=== PATIENT | male | born 1985 | race Two or more races ===

== ENCOUNTER 2023-12-24 06:42 | Emergency (ER) | payer OTHER ==
[~2023-12-24] VITALS: Ht 165.1 cm; Wt 91.6 kg
[2023-12-24] MEDS: ONDANSETRON ODT 4 MG TAB PO ONE (07:34)
[2023-12-24] MEDS: SODIUM CHLORIDE 0.9% 1,000 ML IV ONE (07:35)
[2023-12-24 07:37] VITALS: PULSE 77; RESP 16; O2SAT 97
[2023-12-24 07:43] LABS: Basophils # (auto) 0.1 10 ^3/uL (0-0.2); Basophils % (auto) 0.5 % (0.0-2.0); Eosinophils # (auto) 0.2 10 ^3/uL (0-0.8); Eosinophils % (auto) 1.6 % (0.0-7.0); Hematocrit 42.5 % (41.0-53.0); Hemoglobin 14.5 g/dL (13.5-17.5); Lymphocytes # (auto) 3.2 10 ^3/uL (0.4-5.4); Lymphocytes % (auto) 27.7 % (10.0-50.0); Mean Corpuscular Hemoglobin 30.4 pg (28.0-32.0); Mean Corpuscular Hgb Conc. 34.1 g/dL (32.0-36.0); Mean Corpuscular Volume 89.4 fL (80.0-100.0); Monocytes # (auto) 0.8 10 ^3/uL (0-1.3); Monocytes % (auto) 7.3 % (0.0-12.0); Neutrophils # (auto) 7.3 10 ^3/uL (1.6-8.6); Neutrophils % (auto) 62.9 % (37.0-80.0); Red Blood Cells 4.76 10^6/uL (4.5-5.90); Red Cell Distribution Width 14.1 % (11.8-14.3); White Blood Cell 11.6 10^3/uL (4.4-10.8)
[2023-12-24 07:57] LABS: Alanine Aminotransferase 40 U/L (7-40); Albumin 4.4 g/dL (3.2-4.8); Alkaline Phosphatase 58 U/L (46-116); Anion Gap 5 (5-15); Aspartate Aminotransferase 24 U/L (13-40); BUN/Creatinine Ratio 11.9 (10.0-20.0); Blood Urea Nitrogen 13 mg/dL (9-23); Calcium 9.6 mg/dL (8.5-10.1); Carbon Dioxide 30 mmol/L (20-30); Chloride 100 mmol/L (98-107); Cholesterol 169 mg/dL (< 200); Glucose 115 mg/dL (74-106); HDL Cholesterol 52 mg/dL (40-59); LDL Cholesterol 98 mg/dL (< 100); Magnesium 1.9 mg/dL (1.6-2.6); Potassium 3.9 mmol/L (3.5-5.1); Sodium 135 mmol/L (136-145); Triglycerides 141 mg/dL (< 150)
[2023-12-24 07:58] LABS: Total Protein 7.2 g/dL (5.7-8.2)
[2023-12-24 08:06] LABS: INR 0.96 (0.9-1.15); Partial Thromboplastin Time 25.4 SEC (24.5-34.5); Prothrombin Time 10.2 sec (9.3-11.8)
[2023-12-24 08:55] LABS: Free T3 3.64 pg/mL (2.3-4.2); Free T4 (Free Thyroxine) 1.27 ng/dL (0.89-1.76)
[2023-12-24 10:22] VITALS: BP 128/72; PULSE 78; RESP 17; TEMP 98; O2SAT 97
== END 2023-12-24 10:23 | disposition home or self-care (01) ==
LOC: ER 06:42
DX: R55 Syncope and collapse (principal); E86.0 Dehydration; I10 Essential (primary) hypertension; Z86.2 Personal history of diseases of the blood and blood-forming organs and certain disorders involving the immune mechanism; E78.5 Hyperlipidemia, unspecified
CPT/HCPCS: 36415; 71046; 80053; 80061; 82962; 83036; 83735; 83880; 84439; 84443; 84481; 84484; 85025; 85610; 85730; 93005; 96360; 96361; 99285; J7030; Q0162